=== PATIENT | female | born 1945 | race Caucasian/White ===

== ENCOUNTER 2018-11-15 20:58 | Emergency (ER) | payer MEDICARE, OTHER ==
[~2018-11-15] VITALS: Ht 162.6 cm; Wt 61.2 kg
[~2018-11-15 20:58] MED LIST: ACEASPCAF; Acyclovir200 MG PO; BELPTAB; CONESTTC PV; CRUTCH3 USE; Diovan320 MG PO; GABA300 PO; HYDACE5; LEVSOD150; LORA.5 PO; MORP15ER; NALT50; OXYACE5T PO; PRED10 PO; SYNTHROID0.2 MG PO; THYR60 PO; VALS80; VITB100; ZOLP5 PO
[2018-11-15 21:58] LABS: BASOPHILS ABSOLUTE AUTO 0.01 K/mm3 (0.00-0.23); BASOPHILS PERCENT AUTO 0 % (0-2); EOSINOPHILS ABSOLUTE AUTO 0.06 K/mm3 (0.00-0.68); EOSINOPHILS PERCENT AUTO 1 % (0-6); Hematocrit 42.3 % (33.0-51.0); Hemoglobin 14.4 g/dL (11.5-16.0); IMMATURE GRAN ABSOLUTE AUTO 0.02 K/mm3 (0.00-0.10); IMMATURE GRAN PERCENT AUTO 0 % (0-1); LYMPHOCYTES ABSOLUTE AUTO 0.71 K/mm3 (0.84-5.20); LYMPHOCYTES PERCENT AUTO 11 % (21-46); MONOCYTES ABSOLUTE AUTO 0.47 K/mm3 (0.16-1.47); MONOCYTES PERCENT AUTO 7 % (4-13); Mean Corpuscular HGB 31.9 pg (26.0-34.0); Mean Corpuscular Volume 94 fL (80-100); Mean Platelet Volume 8.9 fL (9.1-12.4); NEUTROPHILS ABSOLUTE AUTO 5.24 K/mm3 (1.96-9.15); NEUTROPHILS PERCENT AUTO 81 % (41-73); Platelet Count 401 K/mm3 (150-400); RDW Coefficient Variation 12.2 % (11.7-14.2); RDW Standard Deviation 41.8 fL (35.1-46.3); Red Blood Cell Count 4.51 M/mm3 (3.80-5.20); White Blood Cell Count 6.51 K/mm3 (4.00-11.30)
[2018-11-15 22:23] LABS: Alanine Aminotransfer (ALT/SGP 20 U/L (12-78); Albumin, Blood 3.6 g/dL (3.4-5.0); Albumin/Globulin Ratio 1.1 (0.8-1.8); Alk Phos 180 U/L (50-136); Anion Gap 15 mmol/L (6-16); Aspartate Aminotrans (AST/SGOT 20 U/L (12-37); Bilirubin, Total 0.5 mg/dL (0.1-1.0); Blood Urea Nitrogen 7 mg/dL (8-24); Bun/Creatinine Ratio 9.9 (12.0-20.0); CO2, Blood 24 mmol/L (21-32); Calcium, Blood 9.2 mg/dL (8.5-10.1); Chloride, Blood 97 mmol/L (98-108); Creatinine, Blood 0.71 mg/dL (0.40-1.00); Globulin, Blood 3.3 g/dL (2.2-4.0); Glomerular Filtration Rate >60 (60-); Glucose, Blood 69 mg/dL (70-99); Phosphorus, Blood 2.5 mg/dL (2.5-4.9); Potassium, Blood 3.6 mmol/L (3.5-5.5); Sodium, Blood 136 mmol/L (136-145); Total Protein, Blood 6.9 g/dL (6.4-8.2); Troponin I <0.015 ng/mL (0.000-0.040)
[2018-11-15 22:35] LABS: Magnesium, Blood 2.1 mg/dL (1.6-2.4)
[2018-11-16 00:32] LABS: U Amphetamine Screen Not Detected; U Barbituate Screen DETECTED; U Benzodiazapine Screen DETECTED; U Buprenorphine Screen Not Detected; U Cannabinoids Screen Not Detected; U Cocaine Screen Not Detected; U Methadone Screen Not Detected; U Methamphetamine Screen Not Detected; U Opiates Screen DETECTED; U Oxycodone Screen DETECTED; U Phencyclidine Screen Not Detected; U Propoxyphene Screen Not Detected
[2018-11-16 02:35] LABS: Campylobacter Sp Not Detected (NOT DETECT)
[2018-11-16 02:36] LABS: Adenovirus F 40/41 Not Detected (NOT DETECT); Astrovirus Not Detected (NOT DETECT); Cryptosporidium Not Detected (NOT DETECT); Cyclospora Cayetanensis Not Detected (NOT DETECT); E. Coli O157 Not Detected (NOT DETECT); Entamoeba Histolytica Not Detected (NOT DETECT); Enteroaggregative E. coli-EAEC Not Detected (NOT DETECT); Enteropathogenic E. coli-EPEC Not Detected (NOT DETECT); Enterotoxigenic E. coli-ETEC Not Detected (NOT DETECT); Giardia Lamblia Not Detected (NOT DETECT); Norovirus GI/GII Not Detected (NOT DETECT); Plesiomonas Shigelloides Not Detected (NOT DETECT); Rotavirus A Not Detected (NOT DETECT); Salmonella Sp Not Detected (NOT DETECT); Sapovirus Not Detected (NOT DETECT); Shiga Toxin-prod E. coli-STEC Not Detected (NOT DETECT); Shigella/Enteroin E. coli-EIEC Not Detected (NOT DETECT); Vibrio Cholerae Not Detected (NOT DETECT); Vibrio Sp Not Detected (NOT DETECT); Yersinia Enterocolitica Not Detected (NOT DETECT)
[2018-11-16] MEDS ORDERED: Zovirax200 MG PO (03:42)
== END 2018-11-16 04:16 | disposition home or self-care (01) ==
LOC: ER 20:58
PROVIDERS: Emergency Medicine
DX: R19.7 Diarrhea, unspecified (principal); R11.2 Nausea with vomiting, unspecified; R10.9 Unspecified abdominal pain; Z88.0 Allergy status to penicillin; Z88.8 Allergy status to other drugs, medicaments and biological substances; Z79.899 Other long term (current) drug therapy; Z79.891 Long term (current) use of opiate analgesic
CPT/HCPCS: 0097U; 71046; 80053; 83735; 84100; 84443; 84484; 85025; 93005; 93010; 96374; 99284-25; A9270-GY; J2270; J7120

== ENCOUNTER 2018-12-24 11:18 | Emergency (ER) | payer MEDICARE, OTHER ==
[~2018-12-24] VITALS: Ht 167.6 cm; Wt 79.4 kg
[~2018-12-24 11:18] MED LIST changes: +Zovirax200 MG PO
[2018-12-24 11:53] LABS: BASOPHILS ABSOLUTE AUTO 0.04 K/mm3 (0.00-0.23); BASOPHILS PERCENT AUTO 1 % (0-2); EOSINOPHILS ABSOLUTE AUTO 0.08 K/mm3 (0.00-0.68); EOSINOPHILS PERCENT AUTO 2 % (0-6); Hematocrit 46.1 % (33.0-51.0); IMMATURE GRAN ABSOLUTE AUTO 0.02 K/mm3 (0.00-0.10); IMMATURE GRAN PERCENT AUTO 1 % (0-1); LYMPHOCYTES ABSOLUTE AUTO 0.64 K/mm3 (0.84-5.20); LYMPHOCYTES PERCENT AUTO 15 % (21-46); MONOCYTES ABSOLUTE AUTO 0.51 K/mm3 (0.16-1.47); MONOCYTES PERCENT AUTO 12 % (4-13); Mean Corpuscular HGB 32.2 pg (26.0-34.0); Mean Corpuscular HGB Conc 32.5 g/dL (31.5-36.5); Mean Corpuscular Volume 99 fL (80-100); Mean Platelet Volume 9.9 fL (9.1-12.4); NEUTROPHILS ABSOLUTE AUTO 3.01 K/mm3 (1.96-9.15); NEUTROPHILS PERCENT AUTO 70 % (41-73); Platelet Count 267 K/mm3 (150-400); RDW Coefficient Variation 14.1 % (11.7-14.2); Red Blood Cell Count 4.66 M/mm3 (3.80-5.20)
[2018-12-24 13:16] LABS: Alanine Aminotransfer (ALT/SGP 13 U/L (12-78); Albumin, Blood 3.3 g/dL (3.4-5.0); Alk Phos 108 U/L (50-136); Anion Gap 17 mmol/L (6-16); Aspartate Aminotrans (AST/SGOT 19 U/L (12-37); Bilirubin, Total 0.8 mg/dL (0.1-1.0); Blood Urea Nitrogen 10 mg/dL (8-24); CO2, Blood 21 mmol/L (21-32); Calcium, Blood 9.2 mg/dL (8.5-10.1); Chloride, Blood 102 mmol/L (98-108); Creatinine, Blood 0.71 mg/dL (0.40-1.00); Globulin, Blood 3.2 g/dL (2.2-4.0); Glomerular Filtration Rate >60 (60-); Glucose, Blood 88 mg/dL (70-99); Potassium, Blood 3.3 mmol/L (3.5-5.5); Sodium, Blood 140 mmol/L (136-145); Total Protein, Blood 6.5 g/dL (6.4-8.2)
== END 2018-12-24 14:32 | disposition home or self-care (01) ==
LOC: ER 11:18
PROVIDERS: Emergency Medicine
DX: E86.0 Dehydration (principal); E03.9 Hypothyroidism, unspecified; E87.6 Hypokalemia; I10 Essential (primary) hypertension; E78.5 Hyperlipidemia, unspecified; Z88.0 Allergy status to penicillin; Z88.8 Allergy status to other drugs, medicaments and biological substances; Z79.899 Other long term (current) drug therapy
CPT/HCPCS: 36415; 80053; 84443; 85025; 93005; 93010; 96360; 99284-25; J7030

== ENCOUNTER 2019-01-10 05:36 | Inpatient (IN) | payer MEDICARE, OTHER ==
[~2019-01-10] VITALS: Ht 162.6 cm; Wt 55.3 kg
[2019-01-10 08:03] LABS: Source, Urine Catheter
[2019-01-10 08:12] LABS: BASOPHILS ABSOLUTE AUTO 0.04 K/mm3 (0.00-0.23); BASOPHILS PERCENT AUTO 0 % (0-2); EOSINOPHILS ABSOLUTE AUTO 0.05 K/mm3 (0.00-0.68); EOSINOPHILS PERCENT AUTO 1 % (0-6); Hematocrit 42.2 % (33.0-51.0); IMMATURE GRAN ABSOLUTE AUTO 0.03 K/mm3 (0.00-0.10); IMMATURE GRAN PERCENT AUTO 0 % (0-1); LYMPHOCYTES ABSOLUTE AUTO 1.03 K/mm3 (0.84-5.20); LYMPHOCYTES PERCENT AUTO 9 % (21-46); MONOCYTES ABSOLUTE AUTO 0.91 K/mm3 (0.16-1.47); MONOCYTES PERCENT AUTO 8 % (4-13); Mean Corpuscular HGB 32.2 pg (26.0-34.0); Mean Corpuscular HGB Conc 33.2 g/dL (31.5-36.5); Mean Corpuscular Volume 97 fL (80-100); NEUTROPHILS ABSOLUTE AUTO 9.03 K/mm3 (1.96-9.15); NEUTROPHILS PERCENT AUTO 81 % (41-73); Platelet Count 394 K/mm3 (150-400); RDW Standard Deviation 50.1 fL (35.1-46.3); Red Blood Cell Count 4.35 M/mm3 (3.80-5.20); White Blood Cell Count 11.09 K/mm3 (4.00-11.30)
[2019-01-10 08:24] LABS: Bilirubin, Urine Neg (Neg); Blood, Urine Neg (Neg); Glucose Qualitative, Urine Neg (Neg); Ketones, Urine 3+ (Neg); Leukocyte Esterase, Urine 1+ (Neg); Nitrite, Urine Neg (Neg); Protein, Urine Neg (Neg); Urobilinogen, Urine 1+ (Normal)
[2019-01-10 08:32] LABS: International Normalized Ratio 1.07; Prothrombin Time Results 11.3 Sec (9.7-11.5)
[2019-01-10 08:34] LABS: Alanine Aminotransfer (ALT/SGP 20 U/L (12-78); Albumin, Blood 3.4 g/dL (3.4-5.0); Alk Phos 107 U/L (50-136); Anion Gap 12 mmol/L (6-16); Appearance, Urine Clear (Clear); Aspartate Aminotrans (AST/SGOT 22 U/L (12-37); Bilirubin, Total 0.7 mg/dL (0.1-1.0); Blood Urea Nitrogen 9 mg/dL (8-24); Bun/Creatinine Ratio 12.5 (12.0-20.0); CO2, Blood 28 mmol/L (21-32); Calcium, Blood 9.5 mg/dL (8.5-10.1); Chloride, Blood 99 mmol/L (98-108); Color, Urine Yellow (P-Yellow); Creatinine, Blood 0.72 mg/dL (0.40-1.00); Globulin, Blood 3.4 g/dL (2.2-4.0); Glomerular Filtration Rate >60 (60-); Glucose, Blood 89 mg/dL (70-99); Potassium, Blood 2.9 mmol/L (3.5-5.5); Sodium, Blood 139 mmol/L (136-145); Total Protein, Blood 6.8 g/dL (6.4-8.2)
[2019-01-10 08:36] LABS: Red Blood Cells, Urine 0-2 /hpf (0-2)
[2019-01-10 08:37] LABS: Bacteria Few /hpf; Mucus Mod (0-Heavy); Squamous Epithelial Cells Few /hpf (Few); Transitional Epithelial Cells Rare /hpf (0-Rare)
[2019-01-10 09:28] LABS: Free Thyroxine 0.78 ng/dL (0.70-1.60)
[2019-01-10 09:30] LABS: Triiodothyronine, Free 1.61 pg/mL (2.18-3.98)
[2019-01-10] MEDS ORDERED: Nature-Throid65 MG PO (11:40)
[2019-01-10] MEDS ORDERED: Nature-Throi16.25 MG PO (11:41)
--- NOTE | 2019-01-10 13:59 | NUR ---
PT TO PRE OP
--- NOTE | 2019-01-10 16:55 | NUR ---
01/10/19 1655 Philipp Matthews PATIENT ARRIVED TO OR WITH OCONNOR IN PLACE. SPINAL ANESTHESIA WELL GENERAL ANESTHESIA ADMINISTERED PER DR. DOWNING
[2019-01-11 04:34] LABS: BASOPHILS ABSOLUTE AUTO 0.03 K/mm3 (0.00-0.23); BASOPHILS PERCENT AUTO 0 % (0-2); EOSINOPHILS PERCENT AUTO 0 % (0-6); IMMATURE GRAN ABSOLUTE AUTO 0.02 K/mm3 (0.00-0.10); IMMATURE GRAN PERCENT AUTO 0 % (0-1); LYMPHOCYTES ABSOLUTE AUTO 0.55 K/mm3 (0.84-5.20); LYMPHOCYTES PERCENT AUTO 6 % (21-46); MONOCYTES ABSOLUTE AUTO 0.95 K/mm3 (0.16-1.47); MONOCYTES PERCENT AUTO 11 % (4-13); Mean Corpuscular HGB Conc 32.4 g/dL (31.5-36.5); Mean Corpuscular Volume 99 fL (80-100); NEUTROPHILS ABSOLUTE AUTO 7.32 K/mm3 (1.96-9.15); NEUTROPHILS PERCENT AUTO 83 % (41-73); Platelet Count 262 K/mm3 (150-400); RDW Coefficient Variation 14.2 % (11.7-14.2); RDW Standard Deviation 51.7 fL (35.1-46.3); Red Blood Cell Count 3.44 M/mm3 (3.80-5.20); White Blood Cell Count 8.87 K/mm3 (4.00-11.30)
[2019-01-11 04:57] LABS: Alanine Aminotransfer (ALT/SGP 24 U/L (12-78); Albumin, Blood 2.5 g/dL (3.4-5.0); Alk Phos 83 U/L (50-136); Anion Gap 7 mmol/L (6-16); Aspartate Aminotrans (AST/SGOT 32 U/L (12-37); Bilirubin, Total 0.8 mg/dL (0.1-1.0); Blood Urea Nitrogen 8 mg/dL (8-24); Bun/Creatinine Ratio 13.2 (12.0-20.0); CO2, Blood 26 mmol/L (21-32); Calcium, Blood 8.1 mg/dL (8.5-10.1); Chloride, Blood 107 mmol/L (98-108); Creatinine, Blood 0.61 mg/dL (0.40-1.00); Globulin, Blood 2.5 g/dL (2.2-4.0); Glomerular Filtration Rate >60 (60-); Glucose, Blood 116 mg/dL (70-99); Magnesium, Blood 1.6 mg/dL (1.6-2.4); Potassium, Blood 3.9 mmol/L (3.5-5.5); Sodium, Blood 140 mmol/L (136-145)
--- NOTE | 2019-01-11 06:36 | NUR ---
LYING IN SEMI FOWLERS WITH EYES OPEN. HAS TRIED TO REST, BUT PAIN MANAGEMENT HAS BEEN DIFFICULT. STATES THAT SHE HAS NOT SLEPT IN DAYS. REPOSITIONED AND MADE COMFORTABLE THROUGHOUT SHIFT. WILL GIVE HAND OFF TO ONCOMING SHIFT USING SBAR.
--- NOTE | 2019-01-11 17:51 | NUR ---
SHIFT SUMMARY POD 1 S/P R ZAKI. A&OX4 WITHOUT ANY ACUTE CHANGES TODAY. DRESSING TO RIGHT HIP C/D/I. WORKED WITH THERAPY TODAY; ABLE TO USE BSC AND UP IN CHAIR FOR 2ND HALF OF SHIFT. STILL NON-AMBULATING. REPOSITIONED PRN AND MEDICATED PER EMAR FOR PAIN MANAGEMENT. POOR PO INTAKE THIS AFTERNOON. CONSUMED 120 ML OF FL SOUP SPOUSE BROUGHT FROM HOME; IVF RUNNING PER ORDER. REPORTS SOME NAUSEA, MEDICATED X1 PER ORDERS. OCONNOR CATH PATENT AND DRAINING CLEAR, YELLOW URINE. CURRENTLTY VISITING WITH SPOUSE WHILE UP IN CHAIR WITH CALL LIGHT WITHIN REACH. WILL CONT. TO MONITOR AND GIVE REPORT TO ONCOMING RN.
[2019-01-12 04:45] LABS: BASOPHILS ABSOLUTE AUTO 0.04 K/mm3 (0.00-0.23); BASOPHILS PERCENT AUTO 0 % (0-2); EOSINOPHILS PERCENT AUTO 0 % (0-6); Hematocrit 35.2 % (33.0-51.0); Hemoglobin 11.7 g/dL (11.5-16.0); IMMATURE GRAN ABSOLUTE AUTO 0.03 K/mm3 (0.00-0.10); IMMATURE GRAN PERCENT AUTO 0 % (0-1); LYMPHOCYTES ABSOLUTE AUTO 0.37 K/mm3 (0.84-5.20); LYMPHOCYTES PERCENT AUTO 3 % (21-46); MONOCYTES ABSOLUTE AUTO 0.82 K/mm3 (0.16-1.47); MONOCYTES PERCENT AUTO 7 % (4-13); Mean Corpuscular HGB 32.6 pg (26.0-34.0); Mean Corpuscular HGB Conc 33.2 g/dL (31.5-36.5); Mean Corpuscular Volume 98 fL (80-100); Mean Platelet Volume 9.5 fL (9.1-12.4); NEUTROPHILS ABSOLUTE AUTO 9.84 K/mm3 (1.96-9.15); NEUTROPHILS PERCENT AUTO 89 % (41-73); Platelet Count 264 K/mm3 (150-400); RDW Coefficient Variation 14.3 % (11.7-14.2); RDW Standard Deviation 51.4 fL (35.1-46.3); Red Blood Cell Count 3.59 M/mm3 (3.80-5.20)
[2019-01-12 05:15] LABS: Percent Saturation 11.8 % (15.0-50.0)
[2019-01-12 05:26] LABS: Alanine Aminotransfer (ALT/SGP 42 U/L (12-78); Albumin, Blood 2.5 g/dL (3.4-5.0); Albumin/Globulin Ratio 0.8 (0.8-1.8); Alk Phos 122 U/L (50-136); Anion Gap 8 mmol/L (6-16); Aspartate Aminotrans (AST/SGOT 76 U/L (12-37); Bilirubin, Total 1.1 mg/dL (0.1-1.0); Blood Urea Nitrogen 10 mg/dL (8-24); Bun/Creatinine Ratio 15.6 (12.0-20.0); CO2, Blood 26 mmol/L (21-32); Calcium, Blood 8.3 mg/dL (8.5-10.1); Chloride, Blood 106 mmol/L (98-108); Creatinine, Blood 0.64 mg/dL (0.40-1.00); Glomerular Filtration Rate >60 (60-); Glucose, Blood 113 mg/dL (70-99); Sodium, Blood 140 mmol/L (136-145); Total Protein, Blood 5.5 g/dL (6.4-8.2)
--- NOTE | 2019-01-12 07:30 | NUR ---
SHIFT SUMMARY: LISSY DID NOT REST THROUGHOUT THE NIGHT. SHE COMPLAINED OF NAUSEA AND VOMITING. SHE HAD APPROX 10 ML IN EMESIS TOTAL. SHE COMPLAINED OF NEEDING TO GO TO THE BATHROOM WITH IMMEDIACY, THEN STATED THAT SHE HAS NOT HAD A BOWEL MOVEMENT IN 2-3 WEEKS AND WANTED TO BE MANUALLY DISIMPACTED. SHE IS POD2 FOR A RIGHT FUENTES HIP. DRESSING CLEAN/DRY &INTACT. SHE HAS A SLING IN PLACE ON HER RIGHT ARM FOR HER RIGHT HUMERAL FX. SHE HAS COMPLAINED OF 8-10/10 PAIN IN HER ARM, HIP AND ABDOMEN. SHE TOLERATED 1 MG OF DILAUDID WELL. SHE WAS REPOSITIONED FREQUENTLY THROUGHOUT THE NIGHT. SHE EXPRESSED DISSATISFACTION WITH THE BED, THE COVERS, ETC. SHE REFUSED TO UTILIZE AN ATTENDS AND DID HAVE A SMALL INCONTINENT STOOL. SHE STATED THAT SHE HAD A 7 YEAR HISTORY OF "EXPLOSIVE" DIARRHEA. PT WITH HIGH AQUITY IN RELATION TO NEEDS THROUGHOUT SHIFT. SHE IS ABLE TO MAKE HER NEEDS KNOWN AND USES THE CALL LIGHT WITHOUT DIFFICULTY. SHE IS LYING IN BED WITH HER CALL LIGHT IN REACH. ELVIN PATENT.
--- NOTE | 2019-01-12 08:04 | NUR ---
DR. GRANADOS IN TO SEE PT DR. GRANADOS IN TO SEE PT AT THIS TIME. DRESSING CHANGED AND AQUACEL TO LEFT HIP PLACED. NO DRAINAGE OR ABNORMALITIES NOTED AT THIS TIME. PATIENT TOLERATED PROCEDURE WELL. WILL CONT. TO MONITOR.
--- NOTE | 2019-01-12 08:51 | NUR ---
DR. KRISHNA IN TO SEE PT DR. KRISHNA IN TO SEE PT AT THIS TIME.
--- NOTE | 2019-01-12 09:42 | NUR ---
INCREASED N/V PT C/O N/V. MEDICATED PER EMAR, ALONG WITH COOL CLOTH AND BED BATH PROVIDED. NOTIFIED; NO NEW ORDERS AT THIS TIME.
--- NOTE | 2019-01-12 19:20 | NUR ---
SHIFT SUMMARY POD 2 LEFT FUENTES/HIP. DRESSING CHANGED THIS MORNING BY DOCTOR AND IS C/D/I WITH NO DRAINAGE NOTED. REPORTED N/V THIS MORNING BUT HAS SINCE SUBSIDED. CONTINUES TO STATE STOMACH DISCOMFORT, ACTIVE BOWEL SOUNDS AND MD NOTIFIED. STATES THIS IS A CHRONIC ISSUE. SEVERAL UNFORMED LOSE BM TODAY. OCONNOR PULLED AND AWAITING VOID. BLADDER SCAN INDICATED LESS THAN 50 CC. MD NOTIFIED AND ORDED INCREASED IV FLUID RATE. WORKED WITH THERAPY THIS MORNING AND SPENT MOST OF DAY IN CHAIR. ABLE TO USE BSC WITH FUENTES WALKER, GAIT BELT, AND ASSISTANCE. SPOUSE AT BEDSIDE T/O SHIFT, VERY SUPPORTIVE AND HELPFUL. PT IS CURRENTLY IN BED VISITING WITH SPOUSE. PT HAS CALL LIGHT WITHIN REACH. WILL CONT TO MONITOR AND GIVE REPORT TO ONCOMING RN.
--- NOTE | 2019-01-12 20:10 | NUR ---
2010: IV FLUID RATE INCREASED TO 150 ML/HR PER DR. KAPOOR ORDERS ON DAY SHIFT.
--- NOTE | 2019-01-13 07:59 | NUR ---
SUMMARY: POD 3 RIGHT HIP HEMIARTHROPLASTY, HUMERUS FX FOLLOWED BY DR. GRANADOS AND HOSPITALIST SERVICE. VSS, AFEBRILE. PT MILD NAUSEA WITH SCANT EMESIS AFTER LARGE VOLUME OF PO INTAKE FLUIDS WITH MEDS. PAIN MANAGED WITH 10MG ROXICODONE, SCHEULED TYLENOL AND TORDAL AND 1MG DILAUDID X1 THIS SHIFT. LOOSE STOOL X2 THIS SHIFT AND ABD PAIN DECREASED SHIFT PROGRESSED. STRAIGHT CATH FOR 400ML; PT STATES UNABLE TO VOID BUT DID HAVE SENSATION OF BLADDER FULLNESS. ENCOURAGE OOB ACTIVIY AND ANTICIPATE DC HOME WITH HOME HEALTH AND PRIMARY CAREGIVER.
--- NOTE | 2019-01-13 10:01 | NUR ---
PT WORKING WITH PHYSICAL THERAPY. DR GANN HERE TO SEE PT, DISCUSSED PT'S STATUS.
--- NOTE | 2019-01-13 10:05 | NUR ---
DR GANN REPORTED TO S.L. PT. DR GANN ALSO STATED TO D/C TELE NOW AND THAT SHE WOULD PLACE NEW ORDERS.
--- NOTE | 2019-01-13 17:40 | NUR ---
PT UNABLE TO VOID THIS AFTERNOON, EVEN AFTER USING BSC. BLADDER SCAN OVER 360. DR GANN NOTIFIED, REPORTED TO GIVE PT MORE TIME, REPORTED IF BLADDER SCAN OVER 400 TO S/C PT.
--- NOTE | 2019-01-13 17:59 | NUR ---
PT REPORTS WAKING UP FROM "ALARM GOING OFF IN ROOM". PT REPORTS HAVING PAIN AND POINTS TO STERNUM AREA. PT ALSO REPORTS ANXIOUS AND TALKS ABOUT HAVING AN AUTO IMMUNE DISEASE. PT ASKED TO CALL FAMILY, WHICH PT WAS ASSISTED WITH. DR GANN WAS NOTIFIED OF PT STATING HAVING PAIN AT STERNUM AREA. DR GANN REPORTED TO HAVE PT STRAIGHT CATHED. OTHER FEMALE RN REPORTS WILL ASSIST WITH S/C.
--- NOTE | 2019-01-13 18:44 | NUR ---
OTHER FEMALE RN PERFORMED S/C PER DR GANN, REPORTED GETTING 325 URINE OUT. FAMILY CAME IN TO SEE PT AND IS PRESENT.
--- NOTE | 2019-01-13 19:29 | NUR ---
SHIFT SUMMARY PT BEEN ASSISTED WITH ADL'S PRN. PT BEEN HAVING MULT BM'S. PT HAVING NAUSEA OFF AND ON MOST OF DAY. PT BEEN ENC TO HAVE SMALL AMT'S OF LIQ INCLUDING HER SPECIAL FOOD IN REFRIGERATOR. PT HAD S/C THIS EVENING PER DR GANN WHICH OTHER FEMALE RN COMPLETED. FAMILY IN/OUT OF ROOM. PT'S HEELS FLOATED, PAS IN PLACE. R ARM IN SLING. PT L HAND ELEVATED, SWELLING APPEARS TO BE GETTING BETTER TO FINGERS. PT USING CALL LIGHT.
--- NOTE | 2019-01-13 21:07 | NUR ---
PT HAD BLACK EMESIS. PT IS AT BEDSIDE, PT AND IS MAKING STATEMENTS THAT PT DOES NOT WANT TO PURSURE TREATMENTS ANYMORE AND IS WISHING TO BE DNR OR EVEN HOSPICE/COMFORT CARE. PT DOES NOT WANT ANY MORE CARE, STATING SHE IS READY FOR AND HAS LIVED A GOOD LIFE. REPORTED TO JERAMIE MADRID, PT WISHES AND STATEMNTS WELL NEW BLACK EMESIS. ANITA REPORTS SHE WILL COME TALK WITH PATIENT.
--- NOTE | 2019-01-13 21:13 | NUR ---
JERAMIE MADRID AT BEDSIDE DISCUSSING WITH PATIENT AND WISHES AND HOW THEY WOULD LIKE TO CONTINUE TREATMENT.
--- NOTE | 2019-01-13 21:26 | NUR ---
PT NOW COMFORT CARE STATUS PER JERAMIE WHARF WORKER, FILLING OUT POLST AT THIS TIME. JACQUELINE STATES SHE WILL PUT ORDERS IN.
[2019-01-13 23:25] LABS: Source, Urine Catheter
[2019-01-13 23:27] LABS: Blood, Urine 1+ (Neg); Glucose Qualitative, Urine Neg (Neg); Ketones, Urine 3+ (Neg); Leukocyte Esterase, Urine 1+ (Neg); Nitrite, Urine Neg (Neg); Protein, Urine 2+ (Neg); Urobilinogen, Urine 1+ (Normal)
--- NOTE | 2019-01-13 23:31 | NUR ---
OCONNOR CATH INSERTED FOR COMFROT MEASURES. PT TOLERATED WELL. STERILE FIELD MAINTAINED.
[2019-01-13 23:34] LABS: Appearance, Urine Clear (Clear); Bilirubin, Urine 1+ (Neg); Color, Urine Amber (P-Yellow)
[2019-01-13 23:35] LABS: Bacteria Few /hpf; Red Blood Cells, Urine 0-2 /hpf (0-2); Squamous Epithelial Cells Rare /hpf (Few); Transitional Epithelial Cells Few /hpf (0-Rare)
--- NOTE | 2019-01-14 03:04 | NUR ---
PT HAVING DARK RED EMESIS AND BLACK STOOL, MENTATION IS DECLINING, PT SPEAKNIG NONSENSE. OCCUPATIONAL ANALYST JERAMIE AWARE. PT TRANSITIONED TO COMFORT CARE EARLIER TONIGHT AFTER LONG DISCUSSION WITH PT, PT , AND HOSPITALIST IN REGARDS TO WISHES. TREATED PT WITH FENTANY AND PHENERGAN. SUCTIONED EMESIS, ATTENDS CHANGED, PROVIDED ORAL CARE. PT MOSTLY NONVERBAL AT THIS TIME.
--- NOTE | 2019-01-14 04:42 | NUR ---
CHRISTIAN PT REQUESTED EARRINGS TO BE SENT HOME WITH . THIS RN REMOVED TWO SETS OF EARRINGS FROM EAR LOBES AND GAVE THEM TO AT BEDSIDE IN CLEAR SEALED SPECIMEN CUP.
--- NOTE | 2019-01-14 05:19 | NUR ---
SHIFT SUMMARY PT BECAME COMFORT CARE STATUS EARLY IN THE SHIFT AFTER LONG DISCUSSION WITH , PT, AND HOSPITALIST. PT HAS VOMITTED DARK BROWN EMESIS, AND STOOLED DARK BROWN LIQUID STOOL. FOUL ODOR OF BLOOD IN BOTH STOOL AND EMESIS. HOSPITALIST AWARE AND TO MANAGE WITH COMF CARE MEASURES PER PT WISHES. PT GIVEN IV PHENERGAN, IV FENTANYL, AND IV ZOFRAN TONIGHT. PT MAKES SEVERAL COMMENTS ABOUT DYING AND "SEEING THE LIGHT". PT AND WISH IS FOR PT TO D/C HOME ON HOSPICE. PALLIATIVE CARE CONSULT. NEW POLST FORM IN CHART. WILL CONT TO MONITOR AND PROVIDE CARE UNTIL PRESUMED BY ONCOMING RN.
--- NOTE | 2019-01-14 11:17 | NUR ---
Called in to provide evp general counsel and prayer to Mrs. Nuñez. Her was at bedside and appears loving. Niki is very weak and unable to say more than one word answers. It was unclear to me how much she understood of what I had to say. Per spouse, "she is a Pentecostalism." Prayer for a peaceful trasition provided. Spouse expressed gratitude. He declined needs, but I encouraged self-care. He did not take me up on my offer to evp general counsel. He appears stoic. Pt said she was in pain. Spouse informed me that medication does not seem to be "working." Informed RN. Conference with Palliative Care RN. I will remain available.
--- NOTE | 2019-01-14 12:09 | NUR ---
Pt minimally responsive able to nod yes or no to a few questions. pt swallow is minimal and difficulty blinking. Pt has stomitsis, gentle oral hydration as to not make her swallow to much. pt pale and cool but dry, having very large tarry stools. poor tolerance of turning and movement, due to pain and waves of nausea. roxinol given and nausea meds. pt not able to swallow po meds. family wanted chaplian to come visit. polst completed pt DNR. is setting up home in hopes to get her home. KPS score 20% may be progressing ventilations adequate. Showing possible symptoms of shock and eminence. May not tolerate transfer home.
--- NOTE | 2019-01-14 13:09 | NUR ---
pt still minimal in response wanting more pain meds for hip. no swallowing. unable to move. clinical status continues to decline.
--- NOTE | 2019-01-14 16:35 | NUR ---
Multiple visits with patient today. Pt having pain tho her arm and this last hour increasing aggitation and expressing emotion pain and aggitation in the fact she has not yet. pt pulling on things and talking about regrets in her life and anger. therputic conversation and touch. placed on fan on pt and cool compresses. increased oral care pt coughing up thick waters sputem and had large dark emesis. positioned for comfort and airway managment review of prn meds with nursing. advised if pt changes to call back. pt concerned he cant handle the process. encouraged expressions of fear and stress. affirmed her statements.
--- NOTE | 2019-01-14 18:33 | NUR ---
SHIFT SUMMARY PT HAS BEEN BEDREST TODAY. PT HAS BEEN VERBAL AT TIMES BUT THROUGH MOST OF THE SHIFT WAS NONVERBAL. HOWEVER SHE DOES RESPOND TO PAIN/NOISE. PT HAS BEEN REPOSITIONED MULT TIMES AND CHANGED PRN. PALLIATIVE CARE HAS BEEN IN TO SEE PT. MEDS WERE ADJUSTED; SEE EMAR. HAS BEEN WITH PT MOST OF THE DAY. PT DID APPEAR TO BE RESTING SEVERAL TIMES.
--- NOTE | 2019-01-14 19:51 | NUR ---
PT SITTING UP IN BED. ASKED IF PT WAS IN PAIN. SAID YES. PT REPOSITIONED IN BED. NO FURTHER COMPLAINTS.
--- NOTE | 2019-01-15 02:01 | NUR ---
PT DECLINED REPOSITION. MEDICATED PER EMAR. PT STATED COMFORT IN CURRENT POSITION. APPLIED COOL WASH CLOTH TO PT FORHEAD.
--- NOTE | 2019-01-15 04:39 | NUR ---
SHIFT SUMMARY PT POD 5. PATIENT HAS BEEN REPOSITIONED IN BED THROUGHOUT SHIFT. DENIED REPOSITIONING A FEW TIMES. PILLOWS UNDER LEGS AND BODY. MEDICATED PER EMAR. PT VOMITED ONCE DURING SHIFT. PHENERGAN RELIEVED NAUSEA. COOL TOWEL PLACED ON FOREHEAD PER PT REQUIEST. NO BM DURING SHIFT. OCONNOR PATENT AND DRAINING.
--- NOTE | 2019-01-15 06:38 | NUR ---
IV WAS LEAKING. REMOVED IV, CATH TIP IN PLACE.
--- NOTE | 2019-01-15 09:45 | NUR ---
UPON ASSESSMENT PT IS SITTING UP IN BED, EATING BREAKFAST. PT REPORTS SHE IS COMFORTABLE, DENIES PAIN AND IS WANTING TO CALL HER . THIS RN ASSISTED HER WITH THIS. PT IS ORIENTED TO SELF AND FAMILY AT THIS TIME. DOES NOT KNOW WHERE SHE IS OR WHAT CURRENT YEAR IS. PT REPORTS THAT SHE REMEMBERS WHY SHE CAME TO THE HOSPITAL BUT CANNOT GIVE DETAILS. PT RE ORIENTED, CALL LIGHT IN REACH, BED ALARM ON. WILL CTM.
--- NOTE | 2019-01-15 10:58 | NUR ---
BED BATH COMPLETED. PT NOW ORIENTED TO PERSON, PLACE, TIME, AND SITUATION. ABLE TO TELL THIS RN THE EVENTS THAT BROUGHT HER TO HOSPITAL. PT PARTICIPATED SOME WITH BEDBATH, ABLE TO BEND KNEES TO TURN AND RAISE L ARM. PT DENIED ANY PAIN FOLLOWING BED BATH. NO NAUSEA. WILL CTM
--- NOTE | 2019-01-15 14:41 | NUR ---
PT MET WITH PALLIATIVE CARE RN. PER PALLIATIVE CARE RN PT WOULD LIKE TO CONTINUE END OF LIFE CARE. SEE FURTHER ASSESSMENT NOTES FOR DETAILS. PT HAS REPORTED ABD PAIN X2, DENIES ANY PAIN IN R ARM. NO NAUSEA OR EMESIS. WILL CTM
--- NOTE | 2019-01-15 16:27 | NUR ---
SUMMARY: PT IS ON COMFORT CARE. SEE PREVIOUS NOTE. NO ACUTE CHANGE TODAY. PT ABLE TO COMMUNICATE NEEDS, NO NAUSEA, SEEMED TO HAVE MINIMAL PAIN. PT IN ROOM THE MAJORITY OF THE DAY. NO CONCERNS AT THIS TIME.
--- NOTE | 2019-01-15 19:07 | NUR ---
met with patient and this morning. More alert and comfortble today. much better pain control no vomiting. pt has slow halsting speech and hs trouble tracking conversation at time. She is only tolerating very small sips of water. has been trying small bites of food. He states hse has been dependent on getting iv fluids from her homeopath the past few months. pt attemtps to lifte left arm and to drink water herself but not able she cannot move or turn herself. stuggles to hold head up. when discussion of plan of care pt adamant she wants end of life care. wants [facility] hosp[facility]. will review with hospice for qulaifiecation under decline in clinical status. pt having signs of GI bleed but does not want consult or scope. is preparing home so pt can return. review of pain med needs with nursing.
[2019-01-16 00:05] LABS: 25-HYDROXY, VITAMIN D 45 ng/mL (.); 25-HYDROXY, VITAMIN D-2 <1.0 ng/mL (.); 25-HYDROXY, VITAMIN D-3 45 ng/mL (.)
--- NOTE | 2019-01-16 03:57 | NUR ---
SHIFT SUMMARY PT HAS BEEN MUCH MORE ALERT THAN YESTERDAY. HAS BEEN CALLING APPROPRIATLY. EASY TOUCH CALL LIGHT PLACED IN ROOM FOR PATIENTS USE. REPOSITIONING Q2 PATIENT ASKING FOR PAIN MED DURING SHIFT. MEDICATED PER EMAR PRN. MEDICATED FOR NAUSEA X1. RESTING IN FOWLERS POSITION AT THIS TIME FOR COMFORT, PER PT REQUEST. OCONNOR PATENT AND DRAINING. PT ASKING FOR SMALL AMOUNT OF WATER TO BE GIVEN TOLERATES SMALL AMOUNT UNDER TONGUE WELL.
--- NOTE | 2019-01-16 10:36 | NUR ---
PT REPOSITIONED PT REPOSITIONED AT THIS TIME AND ORAL CARE GIVEN. PT STATED SHE WAS COMFORTABLE. HAS SOFT TOUCH PAD UNDER HAND. WILL CONT. TO MONITOR.
--- NOTE | 2019-01-16 10:47 | NUR ---
PT RETURNED TO ROOM AT 1043 TODAY. CURRENTLY RESTING IN BED AWAITING MRI. HAS CALL LIGHT WITHIN REACH. WILL CONT TO MONITOR.
--- NOTE | 2019-01-16 11:05 | NUR ---
Pt visit this AM. Pt reports 7/10 pain in her abdomen and back. She reports current regimen helps with the pain for approximately 2 hours. Discussed plan with Pt and to have hospice eveluate for appropriatness. Pt and is agreeable. Pt and report concerns about providing care for Pt while she is in bed with a broken arm and express interest in education from PT. No other concerns reported at this time. Spoke with bedside RN Teena and discussed case. Spoke with Dr Mcgregor and discussed pain management. Placed order for Fentanyl 25mcg Patch and D/C Roxinol Q4 hours PRN per V/O from Dr Young. Pt still has Roxanol Q 1 Hr PRN available for her. Palliative Care will remain available.
--- NOTE | 2019-01-16 12:43 | NUR ---
[facility], PALLIATIVE CARE, THERAPY IN TO SEE PT THIS MORNING.
--- NOTE | 2019-01-16 17:04 | NUR ---
Spoke with bedside JAROCHO Dickinson and she reports Pt would benefit with F/U visit from Palliative Care. Pt is resting in bed upon arrival. Listened as Pt expresses concerns regarding her husbands ability to care for her when she gets home. Discussed PT being available for continued education through hospice once home if still has questions regarding repositioning her in bed. Discussed hiring a caregiver. Pt reports her has hired a caregiver. Suggested to allow and caregiver time to adjust and Pt is agreeable. Pt reports less concerns knowing hospice can help with educating . Pt reports pain isn't well managed. Pt requests pain medication and anxiety medication. No other concerns reported at this time. Pt expresses appreciation of visit. Spoke with bedside JAROCHO Dickinson and reported Pt's pain and anxiety. Teena will offer medications to manage symptoms. Palliative Care will remain available.
--- NOTE | 2019-01-16 18:00 | NUR ---
SHIFT SUMMARY PALLIATIVE CARE AND HOSPICE IN TO SEE PT SEVERAL TIMES TODAY. ALSO WORKED WITH O/T. PLAN TO DISCHARGE HOME TOMORROW W/[facility]. PT AND SPOUSE VERBALIZED UNDERSTANDING OF PLANS. SPOUSE AT BEDSIDE T/O MOST OF SHIFT. PT STATES SHE FEELS ANXIOUS ABOUT THE CHANGES. MEDICATED FOR PAIN AND ANXIETY PER EMAR. OCONNOR IN PLACE AND DRAINING YELLOW URINE. REPOSITIONED AND ADL ASSISTANCE PROVIDED PRN. ABLE TO USE SOFT TOUCH CALL LIGHT THAT IS WITHIN REACH. CURRENTLY RESTING IN BED. WILL CONT. TO MONITOR AND GIVE REPORT TO ONCOMING RN.
--- NOTE | 2019-01-17 06:17 | NUR ---
SHIFT SUMMARY PT HAS RESTED COMFORTABLY THROUGH THE NIGHT AND HAS SLEPT WITH NO PROBLEMS. PAIN AND ANXIETY MANAGED PER EMAR PER PT REQUEST. MILD NAUSEA PRESENT, ZOFRAN GIVEN. PRN REPOSITIONING AND Q2 ADJUSTMENTS PROVIDED. WCTM, LIGHT TOUCH CALL LIGHT IN REACH.
[2019-01-17] MEDS ORDERED: Fentanyl1 EACH TOP (10:00)
[2019-01-17] MEDS ORDERED: THYR60 PO (10:02)
[2019-01-17] MEDS ORDERED: Naltrexone HCl50 MG PO (10:02)
[2019-01-17] MEDS ORDERED: ACET500 PO (10:03)
[2019-01-17] MEDS ORDERED: ASPI81CH PO (10:04)
[2019-01-17] MEDS ORDERED: DIPH50 PO (10:05)
[2019-01-17] MEDS ORDERED: BISA10S PR (10:05)
[2019-01-17] MEDS ORDERED: HALO.5 PO (10:06)
[2019-01-17] MEDS ORDERED: Milk Of Ma400 MG/5 M PO (10:07)
[2019-01-17] MEDS ORDERED: METO10 PO (10:09)
[2019-01-17] MEDS ORDERED: PROM12.5S PO (10:10)
[2019-01-17] MEDS ORDERED: ONDA4ODT SL (10:10)
[2019-01-17] MEDS ORDERED: MORP20L PO (10:13)
--- NOTE | 2019-01-17 13:26 | NUR ---
DEDRICK INSTRUCTIONS COMPLETED AND SENT WITH PT. TO [facility] VIA W/C.
== END 2019-01-17 12:01 | disposition home or self-care (01) | DRG 469 ==
LOC: ER 05:36 → SURS 08:52 → ER 10:24 → SURS 10:40
PROVIDERS: Emergency Medicine; Nurse Practitioner Acute Care; Orthopaedic Surgery; ADMIT Internal Medicine
PROC: 0PSC04Z Reposition Right Humeral Head with Internal Fixation Device, Open Approach (ICD-10-PCS; 2019-01-10)
PROC: 0SRR0JZ Replacement of Right Hip Joint, Femoral Surface with Synthetic Substitute, Open Approach (ICD-10-PCS; principal; 2019-01-10 14:00)
DX: S42.201A Unspecified fracture of upper end of right humerus, initial encounter for closed fracture (principal); S72.091A Other fracture of head and neck of right femur, initial encounter for closed fracture; E46 Unspecified protein-calorie malnutrition; W19.XXXA Unspecified fall, initial encounter; E87.6 Hypokalemia; G89.29 Other chronic pain; E03.9 Hypothyroidism, unspecified; I10 Essential (primary) hypertension; E78.5 Hyperlipidemia, unspecified; K58.2 Mixed irritable bowel syndrome; M81.0 Age-related osteoporosis without current pathological fracture
CPT/HCPCS: 29105; 36415; 51702; 71045; 72170; 73030; 73502; 80053; 81001; 82306; 82728; 83540; 83550; 83735; 84132; 84439; 84443; 84481; 85025; 85027; 85610; 85730; 87086; 88305; 88311; 93005; 93010; 94762; 96361-59; 96365-59; 96368; 96375-59; 96376-59; 97110; 97162; 97166; 97530; 97535; 99285-25; C1776; J0171; J0735; J1170; J1885; J2060; J2250; J2405; J2550; J2704; J2765; J2795; J3010; J3370; J3475; J3480; J7030; J7120

== ENCOUNTER 2019-01-20 04:52 | Inpatient (IN) | payer MEDICARE, OTHER ==
[~2019-01-20] VITALS: Ht 172.7 cm; Wt 60.3 kg
[~2019-01-20 04:52] MED LIST changes: +ACET500 PO; +ASPI81CH PO; +BISA10S PR; +DIPH50 PO; +Fentanyl1 EACH TOP; +HALO.5 PO; +METO10 PO; +MORP20L PO; +Milk Of Ma400 MG/5 M PO; +Naltrexone HCl50 MG PO; +Nature-Throi16.25 MG PO; +Nature-Throid65 MG PO; +ONDA4ODT SL; +PROM12.5S PO
[2019-01-20 05:21] LABS: BASOPHILS ABSOLUTE AUTO 0.05 K/mm3 (0.00-0.23); BASOPHILS PERCENT AUTO 0 % (0-2); EOSINOPHILS ABSOLUTE AUTO 0.04 K/mm3 (0.00-0.68); EOSINOPHILS PERCENT AUTO 0 % (0-6); Hematocrit 23.5 % (33.0-51.0); Hemoglobin 7.5 g/dL (11.5-16.0); IMMATURE GRAN ABSOLUTE AUTO 1.03 K/mm3 (0.00-0.10); IMMATURE GRAN PERCENT AUTO 5 % (0-1); LYMPHOCYTES ABSOLUTE AUTO 1.36 K/mm3 (0.84-5.20); LYMPHOCYTES PERCENT AUTO 6 % (21-46); MONOCYTES ABSOLUTE AUTO 1.12 K/mm3 (0.16-1.47); MONOCYTES PERCENT AUTO 5 % (4-13); Mean Corpuscular HGB 32.3 pg (26.0-34.0); Mean Corpuscular HGB Conc 31.9 g/dL (31.5-36.5); Mean Corpuscular Volume 101 fL (80-100); NEUTROPHILS PERCENT AUTO 84 % (41-73); NRBC ABSOLUTE 0.07 K/mm3 (0.00-0.02); NRBC Auto 0.3 /100 WBC (0.0-0.2); Platelet Count 724 K/mm3 (150-400); RDW Coefficient Variation 14.3 % (11.7-14.2); RDW Standard Deviation 51.8 fL (35.1-46.3); Red Blood Cell Count 2.32 M/mm3 (3.80-5.20)
[2019-01-20 05:32] LABS: Alanine Aminotransfer (ALT/SGP 19 U/L (12-78); Albumin, Blood 2.4 g/dL (3.4-5.0); Albumin/Globulin Ratio 0.9 (0.8-1.8); Alk Phos 102 U/L (50-136); Anion Gap 13 mmol/L (6-16); Aspartate Aminotrans (AST/SGOT 20 U/L (12-37); Bilirubin, Total 0.5 mg/dL (0.1-1.0); Blood Urea Nitrogen 31 mg/dL (8-24); Bun/Creatinine Ratio 55.3 (12.0-20.0); CO2, Blood 24 mmol/L (21-32); Calcium, Blood 8.4 mg/dL (8.5-10.1); Chloride, Blood 102 mmol/L (98-108); Creatinine, Blood 0.56 mg/dL (0.40-1.00); Globulin, Blood 2.8 g/dL (2.2-4.0); Glomerular Filtration Rate >60 (60-); Glucose, Blood 96 mg/dL (70-99); Potassium, Blood 3.5 mmol/L (3.5-5.5); Sodium, Blood 139 mmol/L (136-145); Total Protein, Blood 5.2 g/dL (6.4-8.2)
[2019-01-20 05:58] LABS: Appearance, Urine Hazy (Clear); Bilirubin, Urine Neg (Neg); Blood, Urine 3+ (Neg); Color, Urine Yellow (P-Yellow); Glucose Qualitative, Urine Neg (Neg); Ketones, Urine 4+ (Neg); Leukocyte Esterase, Urine 3+ (Neg); Nitrite, Urine Neg (Neg); Protein, Urine 2+ (Neg); Specific Gravity, Urine 1.025 (1.003-1.022); Urobilinogen, Urine NORM (Normal)
[2019-01-20 06:14] LABS: Bacteria Many /hpf; Squamous Epithelial Cells Not Seen /hpf (Few); White Blood Cells, Urine TNTC /hpf (0-5)
--- NOTE | 2019-01-20 12:37 | NUR ---
Brief visit this afternoon. Pt resting in bed upon arrival. Lab in room attempting to obtain blood. Pt reports her pain is currently managed. She engages in intermittent non sensical conversation. Pt reports nausea with anti nausea medications helping with symptoms. Will attempt to visit with Pt at a later time after lab has finished with blood draw. Spoke with bedside RN Nhung and discussed case. POLST form reads comfort measures only. Futher discussions with Pt and will be needed to determine further goals of care. Palliative Care will remain available.
[2019-01-20 13:02] LABS: Hematocrit 25.5 % (33.0-51.0); Hemoglobin 7.9 g/dL (11.5-16.0)
--- NOTE | 2019-01-20 17:57 | NUR ---
Pt visit this eveing. Pt's [facility] at bedside. Listened as Pt and expresses wishes to pursue comfort care but have concerns due to being turned down for hospice prior to this admission. Listened as Oral expresses concerns reagrding his ability to care for Pt without causing pain to Pt. He also reports they do not qualify for medicaid due to over income and owning property. Suggested hiring a caregiver out of pocket even if its just for 3 to 4 hours a day to help with respite and to learn how to care for Pt. Oral agrees this may be possible. Suggested having hospice physical therapy educate on safety when providing care. is agreeable. Pt and choose [facility]. Pt and report understanding of hospice philosophy due to recent education from previous hospital admission. Pt and are agreeable to start comfort measures while in the hospital. Called and spoke with camera repairer Dipika at [facility]. Dipika reports if Pt does not want to pursue treatment of SBO then Pt may qualify for hospice and will have hospice nurse evaluate Pt tomorrow (Wednesday) while in the hospital. Spoke with Dr Stephens and discussed case including Pt wishes to pursue comfort measures only and hospice. Dr Stephens is agreeable with plan. Placed orders for comfort measures, comfort measure order set, discontinued maintenance medications, and in house transfer to medical floor per V/O from Dr Stephens. Spoke with bedside JAROCHO Hooker and discussed case. Pt is bedbound, PO intake has significantly decreased, and weakness has increased. Pt has been experiencing coffe ground emesis, history of anemia with H&H significantly decreased, fracture of hip and arm. SBO this admission. Pt also has multiple ED visits and hospital admissions. Pt reports her quality of life has significantly diminished and wishes to avoid future hospitalizations and curritive treatment. PPS 20% Karnofsky 30% ADLs 5/6 Palliative Care will remain available for symptom management.
--- NOTE | 2019-01-20 18:01 | NUR ---
SHIFT NOTE PT ARRIVED FROM ER WITH 1 UNIT PRBC INFUSING, PT RESPONDS TO SOME VERBAL STIMULI ON ARRIVAL, AND RESPONDS TO PAINFUL STIMULI. PT WITH RECENT RT HIP AND RT HUMERUS FX, WITH SURGICAL FIX OF HIP 01/10. HIP INCISION IS WELL HEALING WITH NO DRAINAGE OR SWELLING NOTED TO INCISION. PT BECOMES MORE ALERT AFTER SPOUSE LEFT FOR THE AFTERNOON. ABD IS SOFT AND ROUND WITH GAURDING OF ABD NOTED, HYPOACTIVE BOWEL TONES. PT HAS HAD NO EMESIS HERE, BUT HAD 400ML OF COFFEE GROUND EMESIS IN THE ER. PT'S PAIN WAS WELL CONTROLLED WITH 50MCG OF FENTANYL. PT AND FAMILY ARRANGED WITH PALIATIVE CARE TO BE PLACED ON COMFORT CARE
--- NOTE | 2019-01-20 18:18 | NUR ---
Late Entry from previous Palliative Care note. Faxed [facility] Face Sheet, H&P, Most recent assessment.
--- NOTE | 2019-01-20 18:44 | NUR ---
REPORT TO BREE AVENDAÑO ON MEDICAL FLOOR
--- NOTE | 2019-01-21 04:21 | NUR ---
PATIENT IS COMFORTABLE AFTER REPOSITIONING REQUESTS ICE CHIPS.
--- NOTE | 2019-01-21 05:22 | NUR ---
Shift Summary Patient slept well betwen cares. SL morpphine was effective for comfort. Repositioned approximately q2h for comfort.
--- NOTE | 2019-01-21 07:15 | NUR ---
Patient repositioned after PRN SL morphine. States she is comfortable.
--- NOTE | 2019-01-21 10:21 | NUR ---
LINDSAY FROM [facility] STATED TO NURSE THAT PT MEETS CRITERIA FOR ADMISSION. NEEL GROSS AWARE
--- NOTE | 2019-01-21 11:13 | NUR ---
SPIRITUAL CARE CALLED IN PER PT REQUEST.
--- NOTE | 2019-01-21 11:17 | NUR ---
Call back - Pt and spouse were present. A safe space was provided for them to share the pt's current health status with their wendy construct. Spouse Heriberto conversed most of the time, though pt engaged as well. It appears both are at peace with the hospice route and pt able to verbalize her readiness for it. Verbal prayer was offered on behalf of the pt and spouse. Active listening and words of encouragement provided.
--- NOTE | 2019-01-21 16:58 | NUR ---
Pt resting in bed with friend and at bedside. Non verbal indicators suggest Pt in no distress. Pt does report 10/10 pain. Bedside RN in to offer pain medication. Engaged in therapeutic discussion regarding goals of care. Pt reports her goal remains the same and wants only comfort care and hospice. Discussed Hospice nurse's assessment and Pt meeting criteria for hospice. [facility] requests for hospice to provide over bed table. Pt all ready has hospital bed and bedside commode. No other concerns reported at this time. Palliative Care will remain available.
--- NOTE | 2019-01-21 17:38 | NUR ---
SHIFT SUMMARY PT AXO TO SELF AND THOUGH ANXIOUS AT TIMES AND FORGETFUL . MEDICATED PER EMAR FOR PAIN AND ANXIETY. PT'S STATES THE MORE PAIN MEDICATION SHE CAN GET, THE BETTER." THIS NURSE EDUCATED HIM THAT MEDICATION WILL BE GIVEN BASED ON HER COMFORT AND ORDERS. PT STATES THAT HER PAIN LEVEL IS HIGH WHILE SHE APPEARS TO BE RESTING COMFORTABLY. SHE REQUESTS PAIN MEDICATION WITH EVERY ENCOUNTER WITH THE NURSE, THOUGH PT IS LYING IN BED QUIETLY THROUGHOUT THE SHIFT. SPIRITUAL CARE CALLED PER PT REQUEST, SEE NOTE. PALLIATIVE CARE ALSO IN TO VISIT WITH PT, SEE NOTE. PT STATED THIS MORNING THAT SHE "TRIED SO HARD TO LAST NIGHT." IV PATENT AND SALINE LOCKED. PT REFUSED PROTONIX DRIP. BED IN LOW POSITION, CALL LIGHT WITHIN REACH.
--- NOTE | 2019-01-22 04:01 | NUR ---
Patient states pain is improved after SL morphine. Repositioned for comfort. no skin issues noted to mark prominences.
--- NOTE | 2019-01-22 04:04 | NUR ---
Repositioned and placed items in reach for comfort. Patient states she is comfortable.
--- NOTE | 2019-01-22 04:08 | NUR ---
Repositioned for comfort. Placed items in reach. PRN morpnine SL administered for right shoulder pain as requested by patient. She remains easily arousible and talkative with cares. Swallows water without issue.
--- NOTE | 2019-01-22 07:08 | NUR ---
Patient requested pain medication for pain "all over", and specifically in the legs and right shoulder. She declined repositioning "until the sun comes up" at this time. PRN SL morphine administered.
--- NOTE | 2019-01-22 07:21 | NUR ---
Shift Summary Patient slept intermittently and utilized SL morphine several times for pain/comfort management. She had very little urine output, and she refused protonix infusion.
--- NOTE | 2019-01-22 18:47 | NUR ---
SHIFT SUMMARY PT ON COMFORT CARE. PT STATES THAT HER PAIN IS 10/10 THOUGH APPEARS TO BE RESTING COMFORTABLY. THERAPEUTIC TOUCH AND REPOSITIONING OFFERED TO PT, WHICH SHE STATES THAT SHE APPRECIATES. BED IN LOW POSITION, CALL LIGHT WITHIN REACH. NO OTHER CHANGES THIS SHIFT
--- NOTE | 2019-01-23 05:09 | NUR ---
Shift Summary Patient slept better overnight. She states her pain has been well controlled with regular SL morphine. Assisted to reposition for comfort. She continues to drink liquids without issue and has a good swallow. Blum output low but draining properly.
--- NOTE | 2019-01-23 05:19 | NUR ---
Patient appears to be sleeping comfortably.
--- NOTE | 2019-01-23 05:20 | NUR ---
PRN SL morphine was effective for pain. Assisted to reposition patient.
--- NOTE | 2019-01-23 07:58 | NUR ---
Patient declines repositioning at this time. Assisted her to drink cranberry juice per her request. She offered no c/o pain at this time.
--- NOTE | 2019-01-23 10:56 | NUR ---
had greenish fluid output.
--- NOTE | 2019-01-23 16:09 | NUR ---
Inital spiritual care note: Mrs. Nuñez appears frail. She had trouble speaking at times. She tells me she has a strong wendy and she is not afraid of . "I know where I am going." Spouse, Heriberto, at bedside. He appears loving and devoted. Provided gentle spiritual direction and prayer to good effect. Encouraged self-care. I will remain available.
--- NOTE | 2019-01-23 18:01 | NUR ---
ALERT. REPOSITIONED NEEDED. HEEL PROTECTORS AND CRADLE PLACED FOR LE COMFORT. MEDICATED FOR PAIN. UNLABORED RESPIRATIONS. CARLITOS TO RT HIP DRY, INTACT WITH NO SIGNS OF INFECTION. RT ARM IN SLING. IV PATENT. OCONNOR HAD VERY LITTLE OUTPUT. BLE WITH EDEMA ANF LOOKS LIKE FOOT DROP. ABLE TO MAKE NEEDS KNOWN. BED IN LOW POSITION W/CALL LIGHT AND PERSONAL ITEMS WITHIN REACH. WCTM
--- NOTE | 2019-01-23 22:04 | NUR ---
PT WAS SLEEPING AT SHIFT CHANGE. REPORTED NO PAIN OR OTHER NEEDS ONCE SHE DID WAKE UP.
--- NOTE | 2019-01-24 04:42 | NUR ---
SHIFT SUMMARY PT VERY CONFUSED OVERNIGHT. ORIENTED TO SELF ONLY. NO C/O SOB, NAUSEA, OR PAIN. IV IN L AC IS SL. OCONNOR DRAINING CLEAR HERBERTH URINE. R ARM IN SLING. R HIP CARLITOS C/D/I. HEEL BOOTS IN PLACE. PT REPOSITIONED THROUGHOUT THE NIGHT. BED ALARM FOR SAFETY. PLAN IS HOME WITH HOSPICE ON WEDNESDAY.
--- NOTE | 2019-01-24 13:13 | NUR ---
Pt visit this afternoon. Pt resting in bed and appears comfortable. Pt closes her eyes intermittently throughout visit. at bedside and reports plan for [facility]. reports plan for having paid caregivers in the home to help with Pt's needs. Pt remains quiet and has her eyes closed at end of visit. reports no concerns at this time. Spoke with [facility] and discussed case. Palliative Care will remain available.
--- NOTE | 2019-01-24 15:38 | NUR ---
ALERT. MEDICATED FOR PAIN T/O SHIFT. HAD BED BATH.EDEMA RT HAND AND BLE'S. CARLITOS INTACT, DRY. UNLABORED RESPIRATIONS. CALL LIGHT WITHIN REACH. WCTM.
--- NOTE | 2019-01-25 04:14 | NUR ---
SHIFT SUMMARY AOX SELF ONLY. PT VERY CONFUSED. BED ALARM FOR SAFETY. DENIES SOB. ZOFRAN GIVEN @ 2100. ROXANOL GIVEN @ 2100 FOR PAIN IN R ARM/SHOULDER. R HIP CARLITOS ARE C/D/I. R ARM IN SLING. HEEL BOOTS ON. L AC IV - SL. OCONNOR HAS VERY LITTLE CLEAR HERBERTH OUTPUT. PT REPOSITIONED THROUGHOUT THE NIGHT. PLAN IS TO DC WEDNESDAY WITH HOSPICE.
--- NOTE | 2019-01-25 09:07 | NUR ---
Clinical Visit: Pt appears comfortable. She is resting with her eyes closed. Edema noted to feet, extremites warm. Nursing has no concerns at this time. Medicate for symptoms.
--- NOTE | 2019-01-25 10:16 | NUR ---
PATIENT RESTING COMFORTABLY, NO S/S OF PAIN ASSESSED.
--- NOTE | 2019-01-25 10:20 | NUR ---
[facility]/24 PAIN TO R SHOULDER AND R HIP. BED BATH COMPLETE, PATIENT REPOSITIONED ON R SIDE. DENIES ANY FURTHER NEEDS AT THIS TIME.
--- NOTE | 2019-01-25 12:00 | NUR ---
REPOSITIONING Q2 HOURS, MEDICATING WITH ROXINOL EVERY 2-3 HOURS PRN PAIN. AT BEDSIDE. HOSPICE NURSE AT BEDSIDE SPEAKING WITH PATIENT ABOUT OPTIONS.
--- NOTE | 2019-01-25 13:13 | NUR ---
Pt visit this afternoon. Pt resting in bed upon arrival. Currently receiving breakthrough pain medication by bedside JAROCHO Chavez. Pt reports current regimen is managing pain. Engaged in long therapeutic discussion regarding the importance of having in home caregivers to help with Pt's needs. Listened as Mat and Pt report plan in place. Plan is for Husbands colleen esquivel, Pt's life long friend and friend who is a HIGH SCHOOL SPECIAL EDUCATION TEACHER to help with providing care. Mat reports he feels comfortable attempting to provide care for Pt along with the support of friends. Mat reports if this plan fails then he has the financial resources available to hire caregivers. He states being frugal with finances and would like to try their plan first. Engaged in discussion regarding symptom management. Discussed the importance of considering bowel medications. Pt and are adamant against any bowel medication at this time. Educated on risk factors of not taking stool softeners. Discussed pain management including adding Fentanyl Patch for long acting management. Pt and are agreeable. Discussed case with bedside JAROCHO Chavez and discussed case. Prior to Pt visit this AM. Meeting took place with [facility] intake nurse Marion and [facility] Liason Lizett. Pt meets criteria for hospice but concerns are raised regarding husbands ability to care for Pt. After [facility] intake nurse Marion evaluated Pt additional discussions took place with this RN, Marion, and Lizett. Marion reports Pt still meets criteria but still has concerns regarding husbands ability to care for Pt. Lizett reports [facility] not able to admit Pt onto services. Spoke with caremanjoy Kirk and discussed case. Kia reports having conversation with Pt and . Pt and 's choice for hospice agency is [facility]. Palliative Care will remain available for symptom mangement and therapeutic visits.
--- NOTE | 2019-01-25 14:25 | NUR ---
Late Entry from previous note. Consulted with Hospital Pharmacist Chhaya regarding Fentanyl Patch. The amount of Roxanol Pt is requiring after conversion Fentanyl Patch of 25mcg is recommended. Spoke with Dr Mendez and discussed pain management. Will place order for Fantanyl Patch 25mcg per V/O from Dr Mendez.
--- NOTE | 2019-01-25 20:12 | NUR ---
COMFORT CARE SUMMARY PT IS LYING IN BED WITH A GRIMANCE ON HER FACE, PT STATES SHE HAS PAIN IN HER R SHOULDER. PT WAS MEDICATED PER EMAR AND HER ARM WAS REPOSTIONED. PT IS VERY LETHARGIC, PT WAS DIFFICULT TO AROUSE. PT IS CURRENTLY BACK TO SLEEP, CALL LIGHT IN REACH, BED IN LOWEST POSTION, WILL CONTINUE TO MONITOR
--- NOTE | 2019-01-26 02:13 | NUR ---
COMFORT CARE SUMMARY PT IS SLEEPING IN BED WITH HER EYES CLOSED AND FACE RELAXED, RESPIRATIONS DEEP AND UNLABORED. CALL LIGHT IN REACH, BED IN LOWEST POSTION, WILL CONTINUE TO MONITOR.
--- NOTE | 2019-01-26 05:46 | NUR ---
COMFORT CARE SUMMARY PT WAS AWOKEN AND REPOSITIONED. MEPELEX DRESSING CHANGED, NO REDNESS NOTED UNDERNEATH THE DRESSING. PT C/O PAIN IN HER R SHOULDER, MEDICATED PER EMAR. PT IS CURRENTLY FALLING BACK TO SLEEP. CALL LIGHT IN REACH, BED IN LOWEST POSTION, WILL CONTINUE TO MONITOR UNTIL DAYSHIFT NURSE ARRIVES.
--- NOTE | 2019-01-26 07:25 | NUR ---
REPORT GIVEN, PT REPORTS DOING FINE, DENIES WANTING REPOSITIONED AT THIS TIME.
--- NOTE | 2019-01-26 08:00 | NUR ---
PT REPORTS COMFORTABLE AND DOES NOT WISH TO BE REPOSITIONED AT THIS TIME.
--- NOTE | 2019-01-26 08:50 | NUR ---
PATIENT DID NOT EAT BREAKFAST THIS SHIFT DUE TO BEING NPO AT THSI TIME.
--- NOTE | 2019-01-26 10:12 | NUR ---
Pt resting in bed upon arrival. Pt appears comfortable with no non verbal indicators of distress at this time. Discussed plan for discharge today with [facility]. Pt is agreeable. Spoke with bedside RN Kevin, Dr Mendez, and Glass Bead Maker Yelena and discussed case. Palliative Care will remain available.
--- NOTE | 2019-01-26 11:04 | NUR ---
DISCHARGE: PT DISCHARGED HOME ON HOSPICE. PT REPORTS UNDERSTANDING OF DISCHARGE. ORAL AND MAXILLOFACIAL SURGEON ASSISTED WITH DISCHARGE AND REPORTS THAT HOSPICE WILL MEET PT AT THE HOUSE AND WILL GIVE INSTRUCTIONS ON OBTAINING MEDICATION FOR PT. SEAT MAKER ALSO BEEN ASSISTING WITH DISCHARGE. TRANSPORT HERE TO TAKE PT HOME. PT IV BEEN OUT WNL. PT WAS TRANSFERED WITH MULT ASSIST TO [facility]. PT'S BELONGINGS SENT WITH PT INCLUDING D/C PAPERWORK AND HIS OWN PILLOWS THAT HE STATES ARE HIS (SHORT/SMALL PILLOWS).
== END 2019-01-26 11:05 | disposition hospice, home (50) | DRG 389 ==
LOC: ER 04:52 → PCU 06:05 → MEDS 18:36 → ENPENDDIS 01-26 09:58 → MEDS 01-26 11:05
PROVIDERS: Emergency Medicine; ADMIT Internal Medicine
DX: K56.609 Unspecified intestinal obstruction, unspecified as to partial versus complete obstruction (principal); A04.8 Other specified bacterial intestinal infections; E44.0 Moderate protein-calorie malnutrition; F11.20 Opioid dependence, uncomplicated; I10 Essential (primary) hypertension; E03.9 Hypothyroidism, unspecified; E78.5 Hyperlipidemia, unspecified; M19.90 Unspecified osteoarthritis, unspecified site; G89.4 Chronic pain syndrome; Z79.82 Long term (current) use of aspirin; Z66 Do not resuscitate; Z51.5 Encounter for palliative care; R20.9 Unspecified disturbances of skin sensation; S42.411D Displaced simple supracondylar fracture without intercondylar fracture of right humerus, subsequent encounter for fracture with routine healing; K58.2 Mixed irritable bowel syndrome; W19.XXXD Unspecified fall, subsequent encounter
CPT/HCPCS: 36415; 36430; 74177; 80053; 81001; 83605; 83690; 84145; 85014; 85018; 85025; 86850; 86900; 86901; 86923; 87040; 87077; 87086; 87186; 96365-59; 96366; 96368; 96375; 99285-25; C9113; J0696; J2060; J2405; J3010; J7030; P9016; P9046; Q9967